=== PATIENT | female | born 1980 | race African-American/Black ===

== ENCOUNTER 2017-01-13 17:02 | Emergency (ER) | payer SELFPAY ==
[~2017-01-13] VITALS: Ht 170.2 cm; Wt 86.0 kg
[2017-01-13] MEDS ORDERED: LORAZEPAM 2MG/ML CPJ IM ONE (17:45)
[2017-01-13] MEDS ORDERED: LORAZEPAM 2MG/ML CPJ ONE (17:52)
[2017-01-14 02:15] VITALS: BP 132/81
== END 2017-01-14 02:35 | disposition home or self-care (01) ==
LOC: ER 17:13
DX: F10.129 Alcohol abuse with intoxication, unspecified (principal); Y90.9 Presence of alcohol in blood, level not specified; R45.1 Restlessness and agitation; F91.8 Other conduct disorders; R03.0 Elevated blood-pressure reading, without diagnosis of hypertension; Z78.1 Physical restraint status
CPT/HCPCS: 96372; 99283; J2060; A4315